=== PATIENT | male | born 1980 | race Caucasian/White ===

== ENCOUNTER → 2018-08-08 | Outpatient (CLI) | payer BC ==
[~2018-08-08] MED LIST: ATARAX,VISTARIL50 MG PO; KEFLEX500 M1 PO; PREDNISONE20 M1 PO
[2018-08-08 14:01] LABS: HEMATOCRIT 45.9 % (42.0-52.0); HEMOGLOBIN 15.5 g/dl (14.0-18.0); MEAN CELL VOLUME 89.6 fl (80.0-94.0); MEAN CORPUSCULAR HGB 30.3 pg (27.0-31.0); MEAN CORPUSCULAR HGB CONC 33.8 g/dl (33.0-37.0); MEAN PLATELET VOLUME 9.4 fl (9.6-12.3); RED BLOOD COUNT 5.12 10*6/uL (4.50-5.90); RED CELL DISTRI WIDTH 12.7 % (0-14.5); WHITE BLOOD COUNT 8.1 10*3/uL (4.8-10.8)
[2018-08-08 14:36] LABS: ALBUMIN 3.9 gm/dl (3.1-4.5); BUN 12 mg/dl (7-24); CHLORIDE 105 mmol/L (98-107); CHOLESTEROL 189 mg/dL (<200); CREATININE 0.95 mg/dL (0.70-1.30); POTASSIUM 3.7 mmol/L (3.5-5.1); SGOT/AST 18 IU/L (3-35); SGPT/ALT 15 U/L (12-78); SODIUM 140 mmol/L (136-145); TOTAL PROTEIN 7.2 gm/dL (6.4-8.2); TRIGLYCERIDES 123 mg/dl (<150); VLDL CHOLESTEROL 25 mg/dL (6-40)
[2018-08-08 14:37] LABS: ALKALINE PHOSPHATASE 81 U/L (45-117); HDL CHOLESTEROL 55 mg/dl (40-60); LDL CHOLESTEROL 109 mg/dL (9-159)
== END | disposition home or self-care (01) ==
LOC: LAB 13:34
PROVIDERS: Family Medicine
DX: T14.8XXA Other injury of unspecified body region, initial encounter (principal); M25.511 Pain in right shoulder; L03.90 Cellulitis, unspecified

== ENCOUNTER 2018-08-10 20:00 | Emergency (ER) | payer BC ==
[~2018-08-10] VITALS: Ht 177.8 cm; Wt 79.4 kg
[2018-08-10] MEDS ORDERED: PREDNISONE20 M1 PO (20:41)
[2018-08-10] MEDS ORDERED: KEFLEX500 M1 PO (20:41)
[2018-08-10] MEDS ORDERED: ATARAX,VISTARIL50 MG PO (20:49)
== END 2018-08-10 21:59 | disposition home or self-care (01) ==
LOC: ED 20:00
DX: S40.261A Insect bite (nonvenomous) of right shoulder, initial encounter (principal); L08.9 Local infection of the skin and subcutaneous tissue, unspecified; W57.XXXA Bitten or stung by nonvenomous insect and other nonvenomous arthropods, initial encounter; Y93.89 Activity, other specified; Y92.89 Other specified places as the place of occurrence of the external cause; Y99.9 Unspecified external cause status